=== PATIENT | female | born 2005 | race Caucasian/White ===

== ENCOUNTER 2024-11-02 20:21 | Emergency (ER) | payer BC, SELFPAY ==
--- OUTSIDE RECORDS SUMMARY | 2024-11-02 20:23 | XMS_ITS | Clinical Summary ---
Author Organization [facility] Address [address] [address] Phone Care Team Providers Care Computer Repair Instructor Name Role Phone Narayan Lee MD Primary Care Provider Allergies Active Allergy Reactions Criticality Noted Date Comments Diagnostic X-Ray Materials Hives,Dyspnea Medium 2017 Shortness of breath Medications Melatonin-Pyrid oxine (MELATIN) 3-1 MG Tablet Take by mouth. Active Levothyroxine Sodium 25 MCG Capsule Take by mouth. Active buPROPion XL (Wellbutrin XL) 150 MG 24 hour extended release tablet 10/30/2020 Acti ve Focalin XR 20 MG 24 hour capsule 07/27/2021 Active dexmethylphenid ate (Focalin) 5 MG tablet Take 5 mg by mouth one time a day. Active etonogestrel (Nexplanon) 68 MG Implant Inject under the skin Continuous. Active FLUoxetine (PROzac) 20 MG capsule Take 1 Capsule by mouth one time a day. 30 Capsule 2 05/21/2023 10:52 AM CDT 05/21/2023 Active propranolol (Inderal) 10 MG tablet Take 1 Tablet by mouth two times a day as needed for anxiety. 60 Tablet 2 05/21/2023 10:52 AM CDT 05/21/2023 Active Active Problems Problem Noted Date Diagnosed Date Acquired genu valgum, unspecified laterality Patellar subluxation, right, initial encounter 0 04/28/2018 Myopia with astigmatism, bilateral 07/01/2015 Immunizations Name Administration Dates Next Due DTaP <7 years 02/09/2010, 9,04/28/2006,05/06 Hepatitis A, Ped/Adolescent 2 dose 05/12/2015, Hepatitis B, Pediatric/adolescent 01/20/2009,,05/06/2005 Hib (Nos) 01/20/2009,04/28/2006,05/06/2005 IPV 02/09/2010, 9,04/28/2006,05/06 Influenza Trivalent With Preservative 07/21/2017 MMR 03/06/2009,04/28/2006 Pneumococcal Conjugate, (Prevnar)7-valent 04/28/2006,05/06/2005 Tdap (7 years and older) 03/09/2017 Varicella (Varivax) 02/09/2010,01/20/2009 meningococcal MCV4P (Menactra) 03/09/2017 Surgical History Surgery Date Site/Laterality Comments OTHER SURGICAL HISTORY 09/14/2018 Knee/Right Procedure: right knee arthroscopy with medial patella femoral ligament reconstruction using hamstring allograft; Surgeon: Jaime Delarosa MD; Location: [facility] MAIN ORS Medical devices from this surgery are in the Medical Devices section. Medical History Medical History Date Comments Asthma, mild persistent 03/09/2017 Knee pain, bilateral Intermitten t Depression, major, recurrent, moderate (HCC) Subclinical hypothyroidism 03/08/2018 Decreased appetite 11/21/2017 Wrist fracture, right MRSA infection Infancy Allergic rhinitis 01/27/2016 Chronic cough 01/27/2016 Scoliosis of lumbosacral spine 05/03/2017 W / hip asymmetry Scoliosis of thoracolumbar spine 11/21/2017 Acute pain of right knee 04/14/2018 Depression Family History Medical History Relation Comments Macular Degeneration Maternal Grandfather Relation Status Comments Maternal Grandfather Social History Tobacco Use Types Packs/Day Years Used Date Smoking Tobacco: Every Day Cigarettes Smokeless Tobacco: Never Tobacco Cessation:Ready to Q uit: Not Asked; Counseling Given: Not Answered Alcohol Use Standard Drinks/Week Comments Never 0 (1 standard drink = 0.6 oz pur e alcohol) Comments No Sex and Gender Information Value Date Recorded Sex Assigned at Female 09/14/2018 7:47 AM TRANSPORT MANAGER Legal Sex Female 2:55 PM TRANSPORT MANAGER Gender Identity Female 09/14/2018 7:47 AM TRANSPORT MANAGER Sexual Orientation Not on file Obstetrics History Growth Chart Information Age Height Weight Crwksr-jfw-afwd th Percentile BMI Percentile Head Circum Head Circum Percentile Date 12 years 155.5 cm (5' 1.22) 64.7 kg (142 lb 10.2 oz) 94.57%* 2017 * [facility] (Girls, 2-20 Years) Last Filed Vital Signs Vital Sign Reading Time Taken Comments Blood Pressure 97/39 09/14/2018 5:00 PM TRANSPORT MANAGER asl eep Pulse 90 09/14/2018 5:00 PM TRANSPORT MANAGER Temperature 37.2 C (98.9 F) 09/14/2018 5:00 PM TRANSPORT MANAGER Respiratory Rate 14 09/14/2018 5:46 PM TRANSPORT MANAGER Oxygen Saturation 97% 09/14/2018 3:00 PM TRANSPORT MANAGER Inhaled Oxygen Concentration - - Weight 64.7 kg (142 lb 10.2 oz) 09/14/2018 7:28 AM TRANSPORT MANAGER Height 155.5 cm (5' 1.22) 09/14/2018 7:28 AM CS T Body Mass Index 26.76 09/14/2018 7:28 AM TRANSPORT MANAGER Body Mass Index Percentile 94.57% 09/14/2018 7:2 8 AM TRANSPORT MANAGER Growth Chart: [facility] (Girls, 2- 20 Years) Plan of Treatment Health Maintenance Due Date Last Done Comments CHILD AND TEEN CHECKUP AGE 3 -20 YRS 2007 HPV Vaccine (Standing Order) (1 - 3-dose series) 2019 Chlamydia Screening 2020 Meningococcal B Vaccine (Sta nding Order) (1 of 2 - Standard) 2020 Pneumococcal/PCV20 Vaccine: Pediatrics (2-5 yrs) and At-Risk Patients (6-64 yrs) (Standing Order) (1 of 2 - PCV) 2023 04/28/2006, 05/06/2005 COVID-19 Vaccine (2023-2 5 season) 2024 Influenza Vaccine Seasonal (Standing Order) (#1) 2024 07/21/2017 DTaP,Tdap,and Td Vaccines (Standing Order) (6 - Td or Tdap) 03/09/2027 03/09/2017, 02/10/20, 01/20/2009, Additional history exists TETANUS (Standing Order) 03/09/2027 017, 02/09/2010, 01/20/2009, Additional history exists Hepatitis B Vaccine (Standin g Order) Completed 01/20/2009, 04/28/2006, 05/06/2005 PERTUSSIS (Standing Order) Completed 03/09, 02/09/2010, 01/20/2009, Additional history exists Medical Devices Implanted Type Area Renal Medicine Specialist Device Identifier Shelf Expiration Date Model / Serial / Lot System Implant Mpfl Bio Composite Ar-1360c-Cp - [id number] Implanted:Qty: 1 on 09/14/2018 by Jaime Delarosa MD at [facility] Right: Knee ARTHREX 01/08/2020 AR-1360C-C P / NO / [id number] Graft Allograft Tendon Gracillis 27.2cm X 4.0mm [id number] - [id number] Implanted:Qty: 1 on 09/14/2018 by Jaime Delarosa MD at [facility] Right: Knee MUSCULOSKELETAL TRANSPLANT FOU 03/08/2023 [id number] / [id number] / NO Insurance [place] [employer] [facility] [place] [id number] [place] [id number] [facility] Advance Directives For more information, please contact: [phone] * Full Code (Latest Code Status on File) Date Activated Date Inactivated Comments 09/14/2018 1:55 PM 09/14/2018 10:36 PM Care Teams Computer Repair Instructor Relationship Specialty Start Date End Date Narayan Lee MD [place] [id number] [facility] [place] [address] PCP - General Family Medicine 09/28/10
[2024-11-02 20:28] VITALS: BP 129/90; PULSE 109; RESP 18; TEMP 37.1; O2SAT 98; BMI 24.7
[2024-11-02 20:35] VITALS: O2SAT 98
--- NOTE | 2024-11-02 20:35 | ED_ITS ---
HPI - General Adult General Chief complaint: Abdominal Pain Stated complaint: Severe abdominal pain Time Seen by Provider: 11/02/24 20:27 History of Present Illness HPI narrative: 0530 started lower abd pain bilat. N/V/D today. denies known fevers, no meds for pain. restarted sertraline 100 last night as well as new med for sleep. no hx abd sx, does have hx ovarian cysts. has nexplanon BC. A 18-year-old young woman presenting to the emergency department with concern of severe mid abdominal pain. Began fairly suddenly early this morning. She also has been having intermittently loose stools for months. Has not had any fever. Not tried any treatment. She says it is definitely escalated since she has been in the emergency department. She is trembling and breathing rapidly noting that her hands and fingers are getting tingly. Does have a history of ovarian cyst. She does have Nexplanon does not know when her last period was; that it has been a very long time. Did start sertraline 100 mg last night and also clonidine for sleep. Vomited a lot today. She does admit to marijuana use and has had associated abdominal pain but she says this is not it. She does use generally marijuana regularly, daily but has not over the last 2 days she says. She says her doctors not take her seriously. Says she has been told also that she is constipated. Sounds inconsistent with her loose stools. Later questioning acknowledges this has had urgency for months but urinalyses are always unremarkable. Has had about 3 urinalysis done. Denies possibility of he STI and was screened. Is here with her partner in describes that they have been very open about all these things. There is no concern of STI Related Data Home Medications ?Medication ?Instructions ?Recorded ?Confirmed clonidine HCl 0.1 mg tablet 0.1 mg PO QPM 11/02/24 11/02/24 sertraline 100 mg tablet 100 mg PO DAILY 11/02/24 11/02/24 Allergies Allergy/AdvReac Type Severity Reaction Status Date / Time Iodinated Contrast Media Allergy Severe Anaphylaxis Verified 11/02/24 20:33 Review of Systems Status of ROS: Reports: 6 or more systems reviewed and unremarkable except as noted in History and below [facility] Medical History Ovarian cyst ?N83.209 - Unspecified ovarian cyst, unspecified side (ICD-10) Surgical History No significant past surgical history Social History Smoking Status: Never smoker Second hand tobacco smoke exposure: No How often do you have a drink containing alcohol: never AUDIT-C Alcohol total score: 0 Non-prescribed substance use: denies use Exam Narrative: Exam Narrative: Tremulous. Breathing rapidly. Is able to focus and relax a little. Moving all extremities without difficulty. She is well-perfused. No peripheral edema noted. Heart in elevated rate and regular rhythm. Lungs appear to be clear. Abdomen is soft and not tender. Const: Vital Signs, click to edit/add: Vital Signs - 24 hr 11/02/24 20:28 11/02/24 20:35 Temperature 98.8 F Pulse Rate [Pulse Oximeter] 109 H Respiratory Rate 18 Blood Pressure [Ri ght Upper Arm] 129/90 H Pulse Oximetry 98 98 Oxygen Delivery Me thod Room Air Documenting provider has reviewed patient's vital signs: yes Course Vital Signs Vital signs: Initial Vital Signs Temperature 98.8 F 11/02/24 20:28 Temperature Source Temporal Artery Scan 11/02/24 20:28 Pulse Rate 109 H 11/02/24 20:28 Respiratory Rate 18 11/02/24 20:28 Blood Pressure 129/90 H 11/02/24 20:28 Blood Pressure Mean 103 11/02/24 20:28 Blood Pressure Position Sitting 11/02/24 20:28 Pulse Oximetry 98 11/02/24 20:28 Oxygen Delivery Method Room Air 11/02/24 20:28 Vital Signs Temperature 98.8 F 11/02/24 20:28 Pulse Rate 109 H 11/02/24 20:28 Respiratory Rate 18 11/02/24 20:28 Blood Pressure 129/90 H 11/02/24 20:28 Pulse Oximetry 98 11/02/24 20:28 Oxygen Delivery Method Room Air 11/02/24 20:28 Temperature 98.8 F 11/02/24 23:07 Pulse Rate 90 11/02/24 23:07 Respiratory Rate 18 11/02/24 23:07 Blood Pressure 121/74 11/02/24 23:07 Pulse Oximetry 98 11/02/24 23:06 Oxygen Delivery Method Room Air 11/02/24 23:06 Medications Administered Medications: Discontinued Medications Generic Name Dose Route Start Last Admin Trade Name Michelle PRN Reason Stop Dose Admin Sodium Chloride 1,000 mls @ 1,000 mls/hr 11/02/24 20:46 11/02/24 21:35 0.9 % Sodium Chloride 1000 Ml IV 11/02/24 21:45 Infused .Q1H ONE Infusion Ketamine HCl 20 mg/ Sodium 100.2 mls @ 200.4 mls/hr 11/02/24 22:02 11/02/24 22:36 Chloride IVPB 11/02/24 22:03 Infused ONCE ONE Infusion Ketorolac Tromethamine 15 mg 11/02/24 20:44 11/02/24 20:50 Ketorolac 15 Mg/Ml Inj IVP 11/02/24 20:45 15 mg ONCE ONE Administration Lorazepam 0.5 mg 11/02/24 20:44 11/02/24 20:50 Lorazepam 2 Mg/Ml Inj IVP 11/02/24 20:45 0.5 mg ONCE ONE Administration Ondansetron HCl 4 mg 11/02/24 20:53 11/02/24 20:54 Ondansetron 2 Mg/Ml Inj IVP 11/02/24 20:54 4 mg ONCE ONE Administration Promethazine HCl 12.5 mg 11/02/24 22:58 11/02/24 23:03 Promethazine 25 Mg/Ml Inj IVP 11/02/24 22:59 12.5 mg ONCE ONE Administration Medical Decision Making [facility] Narrative Medical decision making narrative: Differential would include functional abdominal pain possibly associated with marijuana. May be viral GI bug. Think less likely ovarian cyst as discomfort is not reproducible. Symptoms could be exacerbated currently by anxiety I think. She would accept this I believe. Amplifying abdominal pain could be sudden restart of SSRI or least amplifying nausea. May have food intolerance or ?allergy? with some related pain. Initiating IV fluids; normal saline. Zofran, ketorolac, lorazepam. Labs are reassuring. Urinalysis pending Reports improvement with anxiety but still with pain and nausea. Discussed potential benefit of ketamine also is there is emotional component to this. And decided to proceed with ketamine dosing. Urinalysis returns looking markedly more positive than reported in the past. Perhaps would be worth treating at this point. Has not received antibiotics for this. Ketamine helps with pain and nausea but she is further distress not feeling really in controller being aware of where she is. Offered reassurance. Does improved. Still with nausea then given promethazine. Possibly with aseptic cystitis? See patient discharge plan for further discussion Starting SSRIs like sertraline can certainly cause/contribute to nausea. If it has been a little while since you have been on it, starting at 100 mg might be uncomfortable. Might need to begin at a lower dose. Marijuana-type product might also be contributing to abdominal pain or or nausea or even anxiety. Will be prescribing cephalexin as an antibiotic and Zofran for nausea from [facility]. Focus on hydration. Popsicles and Jell-O count as hydration I suppose :) A urine culture will be pending here. If it looks like choice of treatment needs to be changed, we will give you a call. Medical Records Medical records reviewed: Yes I reviewed the patient's medical records Lab Data Lab results reviewed: Yes I reviewed the patient's lab results Labs: Lab Results 11/02/24 11/02/24 Range/Units 20:28 20:40 WBC 7.12 (4.50-11.00) K/uL RBC 5.17 (4.00-5.20) m/uL Hgb 14.8 (12.0-16.0) gm/dL Hct 42.3 (33.0-51.0) % MCV 82 (80-100) fL MCH 29 (26-34) pg MCHC 35 (32-36) gm/dL RDW Coeff of Nabila 11.7 (11.5-15.5) % Plt Count 330 (140-440) K/uL Neut % (Auto) 71.2 (42.0-72.0) % Lymph % (Auto) 21.3 (20-44) % [place] % (Auto) 7.2 (0.0-11.0) % Eos % (Auto) 0.0 (0.0-7.0) % Baso % (Auto) 0.3 (0.0-3.0) % Neut # (Auto) 5.07 (1.7-7.0) K/uL Lymph # (Auto) 1.52 (0.90-2.90) K/uL [place] # (Auto) 0.50 (0.00-0.90) K/UL Eos # (Auto) 0.00 (0.00-0.50) K/uL Baso # (Auto) 0.02 (0.00-0.30) K/uL Abs Immat Gran (auto) 0.00 (0.00-0.30) K/uL Imm/Tot Granulo (auto) 0.0 % Sodium 138 (135-149) mmol/L Potassium 3.8 (3.6-5.1) mmol/L Chloride 106 (96-114) mmol/L Carbon Dioxide 12 L (20-32) mmol/L Anion Gap 20 H (7-15) mEq/L BUN 10 (5-24) mg/dL Creatinine 0.8 (0.6-1.2) mg/dL Estimated Creat Clear 89.46 Estimated GFR 109 ml/min Glucose 106 (60-115) mg/dL Calcium 10.2 (8.7-10.8) mg/dL Total Bilirubin 0.9 (0.1-1.5) mg/dL Direct Bilirubin 0.3 (0.0-0.5) mg/dL AST 24 (12-35) U/L ALT 23 (4-35) U/L Alkaline Phosphatase 90 (40-150) U/L C-Reactive Protein < 0.5 L (0.5-1.0) mg/dL Total Protein 7.9 (6.0-8.3) g/dL Albumin 4.9 (3.3-5.0) g/dL Urine Color Yellow (Yellow) Urine Appearance Cloudy A (Clear) Urine pH 6.0 (5.0-8.5) Ur Specific [place] >= 1.030 (1.000-1.030) Urine Protein 2+ A (Negative) Urine Glucose (UA) Negative (Negative) Urine Ketones 3+ A (Negative) Urine Blood 1+ A (Negative) Urine Nitrite Negative (Negative) Urine Bilirubin 2+ A (Negative) Urine Urobilinogen 0.2 (0.2-1.0) Ur Leukocyte Esterase 1+ A (Negative) Urine RBC 10-25 A (0-2) Urine WBC 10-25 A (0-5) Ur Squamous Epith Cells Few (None-Few) Urine Bacteria Many A (None) Urine HCG, Qual Negative (Negative) Discharge Plan Discharge Clinical Impression: Cystitis, Abdominal pain, Anxiety Patient Disposition: Home w/ Parent or Adult Condition: Improved Additional Instructions: Starting SSRIs like sertraline can certainly cause/contribute to nausea. If it has been a little while since you have been on it, starting at 100 mg might be uncomfortable. Might need to begin at a lower dose. Marijuana-type product might also be contributing to abdominal pain or or nausea or even anxiety. Will be prescribing cephalexin as an antibiotic and Zofran for nausea from [facility]. Focus on hydration. Popsicles and Jell-O count as hydration I suppose :) A urine culture will be pending here. If it looks like choice of treatment needs to be changed, we will give you a call. Prescriptions: No Action clonidine HCl 0.1 mg tablet 0.1 mg PO QPM sertraline 100 mg tablet 100 mg PO DAILY Follow Up/Referrals: Provider,Not a Local [Primary Care Provider] - Stand Alone Forms: [facility] Info Instructions
[2024-11-02 20:46] LABS: Ur HCG Qualitative* Negative (Negative)
[2024-11-02] MEDS: KETOROLAC 15 MG/ML inj IVP (20:50)
[2024-11-02] MEDS: LORazepam 2 MG/ML inj 0.5 MG IVP (20:50)
[2024-11-02] MEDS: 0.9 % SODIUM CHLORIDE 1000 ml 1,000 ML IV (20:53)
[2024-11-02] MEDS: ONDANSETRON 2 MG/ML inj 4 MG IVP (20:54)
[2024-11-02 20:58] LABS: Basophils Absolute Auto 0.02 K/uL (0.00-0.30); Basophils Percent Auto 0.3 % (0.0-3.0); Hematocrit 42.3 % (33.0-51.0); Hemoglobin* 14.8 gm/dL (12.0-16.0); Lymphocytes Absolute Auto 1.52 K/uL (0.90-2.90); Lymphocytes Percent Auto 21.3 % (20-44); Mean Corpuscular HGB Conc 35 gm/dL (32-36); Mean Corpuscular Hemoglobin 29 pg (26-34); Mean Corpuscular Volume 82 fL (80-100); Monocytes Percent Auto 7.2 % (0.0-11.0); Neutrophils Absolute Auto 5.07 K/uL (1.7-7.0); Neutrophils Percent Auto 71.2 % (42.0-72.0); Platelet Count* 330 K/uL (140-440); RDW Coefficient of Variation % 11.7 % (11.5-15.5); Red Blood Count 5.17 m/uL (4.00-5.20); White Blood Count* 7.12 K/uL (4.50-11.00)
[2024-11-02 21:00] LABS: Appearance Urine Cloudy (Clear); Bacteria Urine Many; Bilirubin Urine 2+ (Negative); Blood Urine 1+ (Negative); Color Urine Yellow (Yellow); Glucose Urine Negative (Negative); Ketones Urine 3+ (Negative); Leukocyte Esterase Urine 1+ (Negative); Nitrite Urine Negative (Negative); Protein Urine 2+ (Negative); Specific Gravity Urine >= 1.030 (1.000-1.030); Squamous Epithelial Cell Urine Few (None-Few); Urobilinogen Urine 0.2 (0.2-1.0)
[2024-11-02 21:01] LABS: Slide Review Reflex No
[2024-11-02 21:11] LABS: Chloride* 106 mmol/L (96-114)
[2024-11-02 21:12] LABS: Albumin* 4.9 g/dL (3.3-5.0); Potassium* 3.8 mmol/L (3.6-5.1); Sodium* 138 mmol/L (135-149)
[2024-11-02 21:14] LABS: Creatinine* 0.8 mg/dL (0.6-1.2); Est. Creatinine Clearance* 89.46; Estimated Glomerular Filt Rate 109 ml/min
[2024-11-02 21:15] LABS: Alkaline Phosphatase* 90 U/L (40-150); Anion Gap 20 mEq/L (7-15); Aspartate Amino Transferase* 24 U/L (12-35); Bilirubin Direct* 0.3 mg/dL (0.0-0.5); Bilirubin Total* 0.9 mg/dL (0.1-1.5); Blood Urea Nitrogen* 10 mg/dL (5-24); Carbon Dioxide* 12 mmol/L (20-32); Glucose* 106 mg/dL (60-115); Total Protein* 7.9 g/dL (6.0-8.3)
[2024-11-02 21:16] LABS: Calcium* 10.2 mg/dL (8.7-10.8)
[2024-11-02 21:18] LABS: C Reactive Protein* < 0.5 mg/dL (0.5-1.0)
[2024-11-02 21:22] LABS: Alanine Aminotransferase* 23 U/L (4-35)
--- OUTSIDE RECORDS SUMMARY | 2024-11-02 21:53 | XMS_ITS | Clinical Summary ---
Author Organization [facility] Address [address] [address] Phone Care Team Providers Care Completion Supervisor Name Role Phone Narayan Lee MD Primary Care Provider [phone] Allergies Active Allergy Reactions Criticality Noted Date [...] allograft; Surgeon: Jaime Delarosa MD; Location: [facility] MA[facility] ORS Medical devices from this surgery [...] Sex Assigned at Female 09/14/2018 7:47 AM GEOLOGIST Legal Sex Female 2:55 PM GEOLOGIST Gender Identity Female 09/14/2018 7:47 AM GEOLOGIST Sexual Orientation Not on file Obstetrics History Growth Chart Information Age Height Weight Plkdax-znm-bnzz th Percentile BMI Percentile Head Circum Head Circum Percentile Date 12 years 155.5 cm (5' 1.22) 64.7 kg (142 lb 10.2 oz) 94.57%* 2017 * [facility] (Girls, 2-20 Years) Last Filed Vital Signs Vital Sign Reading Time Taken Comments Blood Pressure 97/39 09/14/2018 5:00 PM GEOLOGIST asl eep Pulse 90 09/14/2018 5:00 PM GEOLOGIST Temperature 37.2 C (98.9 F) 09/14/2018 5:00 PM GEOLOGIST Respiratory Rate 14 09/14/2018 5:46 PM GEOLOGIST Oxygen Saturation 97% 09/14/2018 3:00 PM GEOLOGIST Inhaled Oxygen Concentration - - Weight 64.7 kg (142 lb 10.2 oz) 09/14/2018 7:28 AM GEOLOGIST Height 155.5 cm (5' 1.22) 09/14/2018 7:28 AM CS T Body Mass Index 26.76 09/14/2018 7:28 AM GEOLOGIST Body Mass Index Percentile 94.57% 09/14/2018 7:2 8 AM GEOLOGIST Growth Chart: [facility] (Girls, 2- 20 Years) Plan of Treatment [...] history exists Medical Devices Implanted Type Area Branch Library Clerk Device Identifier Shelf Expiration Date Model / Serial / Lot System Implant Mpfl Bio Composite Ar-1360c-Cp - [id number] Implanted:Qty: 1 on 09/14/2018 by Jaime Delarosa MD at [facility] Right: Knee [employer] 01/08/2020 AR-1360C-C P / NO / [id number] Graft Allograft Tendon Gracillis 27.2cm X 4.0mm [id number] - [id number] Implanted:Qty: 1 on 09/14/2018 by Jaime Delarosa MD at [facility] Right: Knee MUSCULOSKELETAL TRANSPLANT FOU 03/08/2023 [id number] / [id number] / NO Insurance [place] [employer] [place] [id number] [place] [id number] [facility] Advance Directives For more information, please contact: [phone] * Full Code (Latest Code Status on File) Date Activated Date Inactivated Comments 09/14/2018 1:55 PM 09/14/2018 10:36 PM Care Teams Completion Supervisor Relationship Specialty Start Date End Date Narayan Lee MD [place] [id number] [facility] [place] [address] PCP - General Family Medicine 09/28/10
[2024-11-02 21:54] VITALS: TEMP 37.1
[2024-11-02] MEDS: KETAMINE 50 MG/0.5 ML 20 MG in 0.9 % SODIUM CHLORIDE 100 ml 100 ML 200.4 MG IVPB (22:05)
[2024-11-02 22:33] VITALS: BP 130/82; PULSE 99; RESP 18; TEMP 37.1; O2SAT 98
[2024-11-02] MEDS: PROMETHAZINE 25 MG/ML INJ 12.5 MG IVP (23:03)
[2024-11-02 23:06] VITALS: BP 121/74; PULSE 90; RESP 18; TEMP 37.1; O2SAT 98
[2024-11-02 23:07] VITALS: BP 121/74; PULSE 90; RESP 18; TEMP 37.1
== END 2024-11-02 23:28 | disposition home or self-care (01) ==
PROVIDERS: Emergency Provider Family Medicine
DX: N30.90 Cystitis, unspecified without hematuria (principal); R10.9 Unspecified abdominal pain; F41.9 Anxiety disorder, unspecified
CPT/HCPCS: 36415; 80048; 80076; 81001; 81025; 85025; 86140; 87086; 94761; 96365; 96375; 99284; J1885; J2060; J2405; J2550; J3490; J7030

== ENCOUNTER 2025-01-15 13:40 | Emergency (ER) | payer BC, SELFPAY ==
[2025-01-15 14:01] VITALS: BP 120/75; PULSE 134; RESP 22; TEMP 37.4; O2SAT 98; BMI 21.0
--- NOTE | 2025-01-15 14:30 | ED_ITS ---
HPI - Abdominal Pain General Chief Complaint: Abdominal Pain Stated Complaint: abdomal pain Time Seen by Provider: 01/15/25 13:51 History of Present Illness HPI narrative: This 19-year-old female comes in reporting upper abdominal pain for the past 3 or 4 days. She states that it is constant but also fluctuates some. She states the pain is always worse when taking food. She does report some nausea and occasional vomiting. She has been having pain like this on and off over the pas t few months and states that she has lost about 25 lb because of the symptoms worsening when taking food. He does not report any fevers. She has not had any diarrhea. She states that she has taken some Pepto-Bismol which seems to give some relief at times. Related Data Home Medications ?Medication ?Instructions ?Recorded ?Confirmed buspirone 5 mg tablet 5 mg PO BID 01/14/25 01/14/25 hydroxyzine HCl 25 mg tablet mg PO 01/14/25 01/14/25 Previous Rx's ?Medication ?Instructions ?Recorded ondansetron 4 mg disintegrating 4 mg PO Q8H PRN nausea and 01/14/25 tablet vomiting #10 tabs pantoprazole 20 mg tablet,delayed 20 mg PO DAILY #30 tabs 01/15/25 release (Protonix) Allergies Allergy/AdvReac Type Severity Reaction Status Date / Time Iodinated Contrast Media Allergy Severe Anaphylaxis Verified 01/14/25 15:40 Review of Systems Status of ROS Reports: 10 or more systems reviewed and unremarkable except as noted in History and below Narrative Constitutional: No fevers, no weight gain or loss. Eyes: No discharge. No vision changes. HENT: No congestion, no sore throat, no ear pain. Cardiovascular: No chest pain, no palpitations. Respiratory: No shortness of breath, no wheezes, no cough. Gastrointestinal: No diarrhea. Abdominal pain is described above. Genitourinary: No dysuria, no hematuria. Musculoskeletal: Normal range of motion. Skin: No rashes, no pruritis. Neurological: No dizziness, weakness, sensory change, speech change. Endo/Heme/Allergies: No bruising or bleeding. No polydipsia. Pysch: no suicidality, no anxiety, no insomnia. All other systems reviewed and are negative. [facility] Medical History Ovarian cyst ?N83.209 - Unspecified ovarian cyst, unspecified side (ICD-10) Surgical History No significant past surgical history Social History Smoking Status: Never smoker Do you use any of these nicotine containing products: Vaping Products Second hand tobacco smoke exposure: No How often do you have a drink containing alcohol: never AUDIT-C Alcohol total score: 0 Non-prescribed substance use: marijuana (any form) Exam Narrative: Exam Narrative: Constitutional: Well-developed, well-nourished, no acute distress. HEENT: Normocephalic, atraumatic. Neck: Normal range of motion. Nontender. Supple. Heart: Regular. No murmurs. Normal rate. Intact distal pulses. Lungs: Clear to auscultation. No chest discomfort. No wheezes, rhonchi, or rales. Abdomen: Normal bowel sounds. Tenderness across the upper abdomen. No rebound tenderness. Genitalia: Deferred. Back: No midline tenderness. Normal range of motion. Extremities: Normal range of motion. No injury. Skin: Intact. No rash. Warm. No erythema or pallor. Neurologic: No altered sensation. No weakness. Alert and oriented. Psychiatric: No suicidality. No anxiety or depression. No insomnia. Nursing notes and vitals signs are reviewed. Const: Vital Signs, click to edit/add: Vital Signs - 24 hr 01/15/25 14:01 Temperature 99.3 F Pulse Rate [Pulse Oximeter] 134 H Respiratory Rate 22 Blood Pressure [Le ft Upper Arm] 120/75 Pulse Oximetry 98 Oxygen Delivery Me thod Room Air Course Vital Signs Vital signs: Initial Vital Signs Temperature 99.3 F 01/15/25 14:01 Temperature Source Temporal Artery Scan 01/15/25 14:01 Pulse Rate 134 H 01/15/25 14:01 Respiratory Rate 22 01/15/25 14:01 Blood Pressure 120/75 01/15/25 14:01 Blood Pressure Mean 90 01/15/25 14:01 Blood Pressure Position Sitting 01/15/25 14:01 Pulse Oximetry 98 01/15/25 14:01 Oxygen Delivery Method Room Air 01/15/25 14:01 Vital Signs Temperature 99.3 F 01/15/25 14:01 Pulse Rate 134 H 01/15/25 14:01 Respiratory Rate 22 01/15/25 14:01 Blood Pressure 120/75 01/15/25 14:01 Pulse Oximetry 98 01/15/25 14:01 Oxygen Delivery Method Room Air 01/15/25 14:01 Temperature 99.3 F 01/15/25 14:01 Pulse Rate 134 H 01/15/25 14:01 Respiratory Rate 22 01/15/25 14:01 Blood Pressure 120/75 01/15/25 14:01 Pulse Oximetry 98 01/15/25 14:01 Oxygen Delivery Method Room Air 01/15/25 14:01 MDM - Abdominal Pain MDM Narrative Medical decision making narrative: This 19-year-old female comes in reporting upper epigastric pain it seems worse when taking food. She reports a weight loss of about 25 lb over the past few months due to these symptoms. She did have her blood checked a few days ago in an urgent care visit and I checked those results which were reassuring. I did use bedside ultrasound to look at her gallbladder which was contracted but did not show any sign of abnormality. The CT scan of her abdomen is also obtained without contrast, as the patient states that she had a reaction to contrast in the past, and this returned with no acute findings also. This was reassuring to her but does not explain her symptoms. I did draw a lab to check her thyroid and the results for this are pending. Patient is okay to be discharged home and will be notified if something is abnormal in that lab result. The patient states that she gets some relief temporarily when taking Pepto-Bismol. I did provide a prescription for Protonix and advised her to follow-up with the gastroenterology clinic or consider an upper GI scope if not improving. Imaging Data CT scan - abdomen: Radiologist's impression: Unremarkable noncontrast abdomen and pelvis CT. Discharge Plan Discharge Clinical Impression: Abdominal pain Patient Disposition: Home, Self-Care Condition: Stable Additional Instructions: Take medication as prescribed. Increase diet as tolerated. Follow-up with gastroenterology clinic and or consider upper endoscopy for further evaluation. Return if worsening. Prescriptions: New pantoprazole [Protonix] 20 mg tablet,delayed release (DR/EC) 20 mg PO DAILY Qty: 30 2RF No Action buspirone 5 mg tablet 5 mg PO BID hydroxyzine HCl 25 mg tablet PO ondansetron 4 mg tablet,disintegrating 4 mg PO Q8H PRN (Reason: nausea and vomiting) Qty: 10 0RF Follow Up/Referrals: Provider,Not a Local [Primary Care Provider] - Stand Alone Forms: MyHealth Info Instructions Procedures Ultrasound Biliary exam #1: Anatomical areas examined: gallbladder, long and short axis and common bile duct Indications: RUQ/epigastric pain Exam type: limited abdominal ultrasound; RUQ Impression: normal exam
--- NOTE | 2025-01-15 14:49 | CRLHL7_ITS ---
For Patients: As a result of the Century Cures Act, medical imaging exams and procedure reports are released immediately into your electronic medical record. You may view this report before your referring provider. If you have questions, please contact your health care provider. INDICATION: Upper abdominal pain and dyspepsia TECHNIQUE: Axial images were obtained from the diaphragm to the pubic symphysis. Reformats were obtained in the coronal and sagittal plane. IV Contrast: None Oral Contrast: None COMPARISON: None. FINDINGS: Lower chest: Unremarkable. Liver: Liver is normal in contour with likely focal fat adjacent to the falciform ligament. Gallbladder and bile ducts: Contracted gallbladder grossly unremarkable. Spleen: Unremarkable. Normal in size without mass. Pancreas: Unremarkable. No mass or inflammation. Adrenal glands: Unremarkable. No nodules. Kidneys: Unremarkable. No masses, stones, or hydronephrosis. Vasculature: Unremarkable. GI tract: The stomach is unremarkable. No dilated loops of large or small intestine. Appendix unremarkable. Pelvis: Unremarkable. Bones: Unremarkable for age. IMPRESSION: Unremarkable noncontrast abdomen and pelvis CT. Please note that all CT scans at this facility use dose modulation, iterative reconstruction, and/or weight-based dosing when appropriate to reduce radiation dose to as low as reasonably achievable. Dictated by Pedro Eagle MD @ 01/15/2025 3:44:24 PM (Electronically Signed)
[2025-01-15 16:01] VITALS: BP 111/67; PULSE 67; RESP 18; TEMP 37.1; O2SAT 96
--- OUTSIDE RECORDS SUMMARY | 2025-01-15 16:22 | XMS_ITS | Clinical Summary ---
Author Organization [facility] Address [address] [address] Phone Care Team Providers Care Quality Control Engineering Technician Name Role Phone Narayan Lee MD Primary Care Provider [phone] Allergies Active Allergy Reactions Criticality Noted Date [...] hamstring allograft; Surgeon: Jaime Delarosa MD; Location: [facility] MA[facility]S Medical devices from [...] Sex Assigned at Female 09/14/2018 7:47 AM MOTION DESIGNER Legal Sex Female 2:55 PM MOTION DESIGNER Gender Identity Female 09/14/2018 7:47 AM MOTION DESIGNER Sexual Orientation Not on file Obstetrics History Last Filed Vital Signs Vital Sign Reading Time Taken Comments Blood Pressure 97/39 09/14/2018 5:00 PM MOTION DESIGNER asl eep Pulse 90 09/14/2018 5:00 PM MOTION DESIGNER Temperature 37.2 C (98.9 F) 09/14/2018 5:00 PM MOTION DESIGNER Respiratory Rate 14 09/14/2018 5:46 PM MOTION DESIGNER Oxygen Saturation 97% 09/14/2018 3:00 PM MOTION DESIGNER Inhaled Oxygen Concentration - - Weight 64.7 kg (142 lb 10.2 oz) 09/14/2018 7:28 AM MOTION DESIGNER Height 155.5 cm (5' 1.22) 09/14/2018 7:28 AM CS T Body Mass Index 26.76 09/14/2018 7:28 AM MOTION DESIGNER Plan of Treatment Health Maintenance Due Date Last Done Comments HPV Vaccine (Standing Order) (1 - 3-dose series) 2019 Chlamydia Screening 2020 Meningococcal B Vaccine (Sta nding Order) (1 of 2 - Standard) 2020 ADULT COMPLETE PHYSICAL AGE 19-21 YRS 2023 Pneumococcal/PCV20 Vaccine: Pediatrics (2-5 yrs) and At-Risk Patients (6-49 yrs) (Standing Order) (1 of 2 - PCV) 2023 04/28/2006, 05/06/2005 COVID-19 Vaccine (2023-2 5 season) 2024 Influenza Vaccine Seasonal (Standing Order) (#1) 2024 07/21/2017 TETANUS (Standing Order) 03/09/2027 017, 02/09/2010, 01/20/2009, Additional history exists Hepatitis B Vaccine (Standin g Order) Completed 01/20/2009, 04/28/2006, 05/06/2005 PERTUSSIS (Standing Order) Completed 03/09, 02/09/2010, 01/20/2009, Additional history exists Medical Devices Implanted Type Area Revenue Investigator Device Identifier Shelf Expiration Date Model / Serial / Lot System Implant Mpfl Bio Composite Ar-1360c-Cp - [id number] Implanted:Qty: 1 on 09/14/2018 by Jaime Delarosa MD at [facility] Right: Knee ARTHREX 01/08/2020 AR-1360C-C P / NO / [id number] Graft Allograft Tendon Gracillis 27.2cm X 4.0mm [id number] - [id number] Implanted:Qty: 1 on 09/14/2018 by Jaime Delarosa MD at [facility] Right: Knee MUSCULOSKELETAL TRANSPLANT FOU 03/08/2023 [id number] / [id number] / [place] [address] [facility] [facility] [address] [place] [address] [place] [address] [place] [address] Advance Directives For more information, please contact: [phone] * Full Code (Latest Code Status on File) Date Activated Date Inactivated Comments 09/14/2018 1:55 PM 09/14/2018 10:36 PM Care Teams Quality Control Engineering Technician Relationship Specialty Start Date End Date Narayan Lee MD [address] [place] [address] PCP - General Family Medicine 09/28/10
== END 2025-01-15 16:32 | disposition home or self-care (01) ==
PROVIDERS: Emergency Provider Emergency Medicine Emergency Medical Services
DX: R10.9 Unspecified abdominal pain (principal)
CPT/HCPCS: 36415; 74176; 76705; 84443; 99284; 99285

== ENCOUNTER 2025-01-18 12:35 | Emergency (ER) | payer BC, SELFPAY ==
--- OUTSIDE RECORDS SUMMARY | 2025-01-18 12:37 | XMS_ITS | Clinical Summary ---
Author Organization [facility] Address [address] [address] Phone Care Team Providers Care Human Relations Manager Name Role Phone Narayan Lee MD Primary Care Provider [phone] Allergies Active Allergy Reactions Criticality Noted Date [...] hamstring allograft; Surgeon: Jaime Delarosa MD; Location: [facility] MA[facility]S Medical devices from [...] Sex Assigned at Female 09/14/2018 7:47 AM ELECTRIC LOCOMOTIVE CRANE OPERATOR Legal Sex Female 2:55 PM ELECTRIC LOCOMOTIVE CRANE OPERATOR Gender Identity Female 09/14/2018 7:47 AM ELECTRIC LOCOMOTIVE CRANE OPERATOR Sexual Orientation Not on file Obstetrics History Last Filed Vital Signs Vital Sign Reading Time Taken Comments Blood Pressure 97/39 09/14/2018 5:00 PM ELECTRIC LOCOMOTIVE CRANE OPERATOR asl eep Pulse 90 09/14/2018 5:00 PM ELECTRIC LOCOMOTIVE CRANE OPERATOR Temperature 37.2 C (98.9 F) 09/14/2018 5:00 PM ELECTRIC LOCOMOTIVE CRANE OPERATOR Respiratory Rate 14 09/14/2018 5:46 PM ELECTRIC LOCOMOTIVE CRANE OPERATOR Oxygen Saturation 97% 09/14/2018 3:00 PM ELECTRIC LOCOMOTIVE CRANE OPERATOR Inhaled Oxygen Concentration - - Weight 64.7 kg (142 lb 10.2 oz) 09/14/2018 7:28 AM ELECTRIC LOCOMOTIVE CRANE OPERATOR Height 155.5 cm (5' 1.22) 09/14/2018 7:28 AM CS T Body Mass Index 26.76 09/14/2018 7:28 AM ELECTRIC LOCOMOTIVE CRANE OPERATOR Plan of Treatment Health Maintenance Due Date [...] history exists Medical Devices Implanted Type Area Gas Meter Reader Device Identifier Shelf Expiration Date Model / Serial / Lot System Implant Mpfl Bio Composite Ar-1360c-Cp - [id number] Implanted:Qty: 1 on 09/14/2018 by Jaime Delarosa MD at [facility] Right: Knee ARTHREX 01/08/2020 AR-1360C-C P / NO / [id number] Graft Allograft Tendon Gracillis 27.2cm X 4.0mm [id number] - [id number] Implanted:Qty: 1 on 09/14/2018 by Jaime Delarosa MD at [facility] Right: Knee MUSCULOSKELETAL TRANSPLANT FOU 03/08/2023 [id number] / [id number] / NO [place] [address] [address] [facility] [address] [place] [address] [place] [address] [place] [address] Advance Directives For more information, please contact: [phone] * Full Code (Latest Code Status on File) Date Activated Date Inactivated Comments 09/14/2018 1:55 PM 09/14/2018 10:36 PM Care Teams Human Relations Manager Relationship Specialty Start Date End Date Narayan Lee MD [address] [place] [address] PCP - General Family Medicine 09/28/10
[2025-01-18 12:44] VITALS: BP 121/75; PULSE 121; RESP 26; TEMP 38.4; O2SAT 98; BMI 21.2
--- NOTE | 2025-01-18 13:03 | ED_ITS ---
HPI - General Adult General Time Seen by Provider: 13:03 Date Seen: 01/18/25 Chief complaint: Back Injury/Pain Stated complaint: back and chest pain for 8 days Time Seen by Provider: 01/18/25 12:37 Source: patient, RN notes reviewed and old records reviewed Mode of arrival: ambulatory Limitations: no limitations History of Present Illness HPI narrative: This 19-year-old female is coming in with complaint of a week and a half of a band of upper abdominal midback pain. She was in the ER on January 15, had a CT of her abdomen pelvis without any acute pathology. No labs are seen from that date. She has pain in the center of her mid thoracic back. She states she has had a 25 lb weight loss in the last month. She denies any changes in urination. She does endorse dry cough, post-tussive emesis, some ongoing nausea and dry heaves outside of cough. She has had normal bowel movements. She has tried Tylenol, ice, ibuprofen and nothing is helping. She has not taken anything. She has a fever here today, unclear how long she has been febrile. She denies any travel. She has not been working. She was in college, states she had some problems and is getting herself sorted out. Related Data Home Medications ?Medication ?Instructions ?Recorded ?Confirmed buspirone 5 mg tablet 5 mg PO BID 01/14/25 01/18/25 hydroxyzine HCl 25 mg tablet mg PO 01/14/25 01/14/25 etonogestrel 68 mg subdermal subdermal 01/18/25 implant (Nexplanon) Previous Rx's ?Medication ?Instructions ?Recorded ondansetron 4 mg disintegrating 4 mg PO Q8H PRN nausea and 01/14/25 tablet vomiting #10 tabs pantoprazole 20 mg tablet,delayed 20 mg PO DAILY #30 tabs 01/15/25 release (Protonix) azithromycin 250 mg tablet 250 mg PO DAILY 6 days #4 tabs 01/18/25 cefdinir 300 mg capsule 300 mg PO BID #14 caps 01/18/25 ibuprofen 600 mg tablet 600 mg PO Q6H PRN #30 tabs 01/18/25 ondansetron 4 mg disintegrating 4 mg PO Q6H PRN nausea and 01/18/25 tablet vomiting #10 tabs Allergies Allergy/AdvReac Type Severity Reaction Status Date / Time Iodinated Contrast Media Allergy Severe Anaphylaxis Verified 01/18/25 12:44 Review of Systems Status of ROS: Reports: 6 or more systems reviewed and unremarkable except as noted in History and below [facility] Medical History Ovarian cyst ?N83.209 - Unspecified ovarian cyst, unspecified side (ICD-10) Surgical History No significant past surgical history Social History Smoking Status: Never smoker Do you use any of these nicotine containing products: Vaping Products Second hand tobacco smoke exposure: No How often do you have a drink containing alcohol: never AUDIT-C Alcohol total score: 0 Non-prescribed substance use: marijuana (any form) service: No Exam Const: Vital Signs, click to edit/add: Vital Signs - 24 hr 01/18/25 12:44 01/18/25 13:26 01/18/25 13:38 Temperature 101.2 F H 101 F H Pulse Rate [Pulse Oximeter] 121 H Respiratory Rate 26 H Blood Pressure [Le ft Upper Arm] 121/75 Pulse Oximetry 98 96 Oxygen Delivery Me thod Room Air 01/18/25 14:02 01/18/25 14:45 01/18/25 15:25 Temperature 99.8 F H 98.8 F 98.9 F Pulse Rate [Pulse Oximeter] 98 100 98 Respiratory Rate 16 16 16 Blood Pressure [Le ft Upper Arm] 108/72 107/70 108/75 Pulse Oximetry 98 98 99 Oxygen Delivery Me thod Room Air Room Air Room Air This 19-year-old female is alert and interactive but certainly looks like she does not feel well. Her skin is warm without rash. Sclera clear, conjugate gaze. Oropharynx dry but no exudates or erythema. Neck is supple, no adenopathy. Her lungs actually are clear, do not hear any wheezing or crackles. No tachypnea, no accessory muscle use. CV fast but regular, no murmur noted, normal S1-S2. Abdomen is soft, nontender, nondistended, no organomegaly, no rebound or guarding. She certainly does not have any epigastric or upper abdominal tenderness on my examination at this time. Moving her arms and legs. When she does roll over, she is feeling discomfort in her back. Documenting provider has reviewed patient's vital signs: yes Course Course ED Course: Patient has a fever today. This most definitely is representing some sort of infectious etiology. Need to consider Pulmonary, possible cardiac, even musculoskeletal issues such as diskitis potentially given her severe back pain. Back pain could be from the fever and underlying illness with myalgias. Need to consider both viral as well as bacterial etiologies. Given the normal CT on the , doubt that this represents anything intra-abdominal but may need to reconsider that. Reevaluation(s) Time of Reevaluation #1: 14:15 Reevaluation #1: Patient is feeling a bit better with IV fluids and Toradol. She is still having some back pain, on palpation of her thoracic spine, has midline tenderness in the more mid thoracic spine. There is no overlying skin changes, no palpable defect of the area outside of the pain. Her labs are overall reassuring. Will proceed with chest CT and reconstitute her thoracic spine on CT. Patient does not do any IV drugs on questioning. She states she does no drug use at all outside of marijuana. She has never done any IV illicit substance use. Again she has had no travel. Will add on a mono spot as well. Time of Reevaluation #2: 15:06 Reevaluation #2: Updated patient on her CT finding of pneumonia. Provided her a copy of the report. Thankfully no evidence of any changes on the thoracic spine suggestive of any infection there and there is pneumonia on her CT imaging of her chest. Have initiated 2 g IV Rocephin, 500 mg oral azithromycin. She is getting a 2 L of IV fluids as labs do support some dehydration. Overall her vitals have improved, blood pressure is lower but she is feeling much better, much less pain and think the initial blood pressure could have had escalation from pain component. Vital Signs Vital signs: Initial Vital Signs Temperature 101.2 F H 01/18/25 12:44 Temperature Source Temporal Artery Scan 01/18/25 12:44 Pulse Rate 121 H 01/18/25 12:44 Respiratory Rate 26 H 01/18/25 12:44 Blood Pressure 121/75 01/18/25 12:44 Blood Pressure Mean 90 01/18/25 12:44 Blood Pressure Position Sitting 01/18/25 12:44 Pulse Oximetry 98 01/18/25 12:44 Oxygen Delivery Method Room Air 01/18/25 12:44 Vital Signs Temperature 101.2 F H 01/18/25 12:44 Pulse Rate 121 H 01/18/25 12:44 Respiratory Rate 26 H 01/18/25 12:44 Blood Pressure 121/75 01/18/25 12:44 Pulse Oximetry 98 01/18/25 12:44 Oxygen Delivery Method Room Air 01/18/25 12:44 Temperature 98.9 F 01/18/25 15:25 Pulse Rate 98 01/18/25 15:25 Respiratory Rate 16 01/18/25 15:25 Blood Pressure 108/75 01/18/25 15:25 Pulse Oximetry 99 01/18/25 15:25 Oxygen Delivery Method Room Air 01/18/25 15:25 Medications Administered Medications: Generic Name Dose Route Start Last Admin Trade Name Freq PRN Reason Stop Dose Admin Sodium Chloride 1,000 mls @ 500 mls/hr 01/18/25 14:22 01/18/25 14:23 0.9 % Sodium Chloride 1000 Ml IV 01/18/25 16:21 500 mls/hr .Q2H [place] Administration Discontinued Medications Generic Name Dose Route Start Last Admin Trade Name Freq PRN Reason Stop Dose Admin Azithromycin 500 mg 01/18/25 14:58 01/18/25 15:04 Azithromycin 250 Mg Tablet PO 01/18/25 14:59 500 mg ONCE ONE Administration Sodium Chloride 1,000 mls @ 1,000 mls/hr 01/18/25 13:11 01/18/25 14:29 0.9 % Sodium Chloride 1000 Ml IV 01/18/25 14:10 Infused .Q1H [place] Infusion Ceftriaxone Sodium 2 gm/ 100 mls @ 200 mls/hr 01/18/25 14:58 01/18/25 15:34 Sodium Chloride IVPB 01/18/25 14:59 Infused ONCE ONE Infusion Ketorolac Tromethamine 15 mg 01/18/25 13:10 01/18/25 13:38 Ketorolac 15 Mg/Ml Inj IVP 01/18/25 13:11 15 mg ONCE ONE Administration Ketorolac Tromethamine 15 mg 01/18/25 15:39 01/18/25 15:49 Ketorolac 15 Mg/Ml Inj IVP 01/18/25 15:40 15 mg ONCE ONE Administration Medical Decision Making Lab Data Lab results reviewed: Yes I reviewed the patient's lab results Labs: Lab Results 01/18/25 01/18/25 01/18/25 Range/Units 13:20 13:22 13:30 WBC 8.29 (4.50-11.00) K/uL RBC 5.08 (4.00-5.20) m/uL Hgb 14.5 (12.0-16.0) gm/dL Hct 41.8 (33.0-51.0) % MCV 82 (80-100) fL MCH 29 (26-34) pg MCHC 35 (32-36) gm/dL RDW Coeff of Nabila 11.4 L (11.5-15.5) % Plt Count 231 (140-440) K/uL Neut % (Auto) 84.5 H (42.0-72.0) % Lymph % (Auto) 8.1 L (20-44) % [place] % (Auto) 7.1 (0.0-11.0) % Eos % (Auto) 0.0 (0.0-7.0) % Baso % (Auto) 0.2 (0.0-3.0) % Neut # (Auto) 7.00 (1.7-7.0) K/uL Lymph # (Auto) 0.70 L (0.90-2.90) K/uL [place] # (Auto) 0.60 (0.00-0.90) K/UL Eos # (Auto) 0.00 (0.00-0.50) K/uL Baso # (Auto) 0.02 (0.00-0.30) K/uL Abs Immat Gran (auto) 0.01 (0.00-0.30) K/uL Imm/Tot Granulo (auto) 0.1 % Sodium 137 (135-149) mmol/L Potassium 3.7 (3.6-5.1) mmol/L Chloride 104 (96-114) mmol/L Carbon Dioxide 18 L (20-32) mmol/L Anion Gap 15 (7-15) mEq/L BUN 8 (5-24) mg/dL Creatinine 0.9 (0.5-1.5) mg/dL Estimated Creat Clear 78.86 Estimated GFR 94 ml/min Glucose 82 (60-115) mg/dL Lactate 1.4 (0.5-1.9) mmol/L Calcium 9.5 (8.4-10.6) mg/dL Total Bilirubin 0.7 (0.1-1.5) mg/dL AST 21 (12-35) U/L ALT 17 (4-35) U/L Alkaline Phosphatase 90 (40-150) U/L Troponin I < 0.01 (0.01-0.04) ng/mL C-Reactive Protein 1.1 H (0.5-1.0) mg/dL NT-Pro-B Natriuret Pep 20 pg/mL Total Protein 7.4 (6.0-8.3) g/dL Albumin 4.8 (3.3-5.0) g/dL Procalcitonin 0.06 (<0.50) ng/mL Urine Color Yellow (Yellow) Urine Appearance Clear (Clear) Urine pH 6.5 (5.0-8.5) Ur Specific [place] 1.025 (1.000-1.030) Urine Protein Negative (Negative) Urine Glucose (UA) Negative (Negative) Urine Ketones 3+ A (Negative) Urine Blood Trace-intact A (Negative) Urine Nitrite Negative (Negative) Urine Bilirubin Negative (Negative) Urine Urobilinogen 0.2 (0.2-1.0) Ur Leukocyte Esterase Negative (Negative) Urine RBC 2-5 A (0-2) Urine WBC 2-5 (0-5) Ur Squamous Epith Cells Few (None-Few) Urine Bacteria Few A (None) Urine Mucus Few A (None) Urine HCG, Qual Negative (Negative) SARS-CoV-2 (PCR) Negative SARS-CoV-2 (Negative) Monoscreen Negative (Negative) Influenza Type A (PCR) Negative PCR FLU A (Negative) Influenza Type B (PCR) Negative PCR FLU B (Negative) RSV (PCR) Negative PCR RSV (Negative) Lab Acknowledgement 01/18/25 Range/Units 14:17 WBC (4.50-11.00) K/uL RBC (4.00-5.20) m/uL Hgb (12.0-16.0) gm/dL Hct (33.0-51.0) % MCV (80-100) fL MCH (26-34) pg MCHC (32-36) gm/dL RDW Coeff of Nabila (11.5-15.5) % Plt Count (140-440) K/uL Neut % (Auto) (42.0-72.0) % Lymph % (Auto) (20-44) % [place] % (Auto) (0.0-11.0) % Eos % (Auto) (0.0-7.0) % Baso % (Auto) (0.0-3.0) % Neut # (Auto) (1.7-7.0) K/uL Lymph # (Auto) (0.90-2.90) K/uL [place] # (Auto) (0.00-0.90) K/UL Eos # (Auto) (0.00-0.50) K/uL Baso # (Auto) (0.00-0.30) K/uL Abs Immat Gran (auto) (0.00-0.30) K/uL Imm/Tot Granulo (auto) % Sodium (135-149) mmol/L Potassium (3.6-5.1) mmol/L Chloride (96-114) mmol/L Carbon Dioxide (20-32) mmol/L Anion Gap (7-15) mEq/L BUN (5-24) mg/dL Creatinine (0.5-1.5) mg/dL Estimated Creat Clear Estimated GFR ml/min Glucose (60-115) mg/dL Lactate (0.5-1.9) mmol/L Calcium (8.4-10.6) mg/dL Total Bilirubin (0.1-1.5) mg/dL AST (12-35) U/L ALT (4-35) U/L Alkaline Phosphatase (40-150) U/L Troponin I (0.01-0.04) ng/mL C-Reactive Protein (0.5-1.0) mg/dL NT-Pro-B Natriuret Pep pg/mL Total Protein (6.0-8.3) g/dL Albumin (3.3-5.0) g/dL Procalcitonin (<0.50) ng/mL Urine Color (Yellow) Urine Appearance (Clear) Urine pH (5.0-8.5) Ur Specific [place] (1.000-1.030) Urine Protein (Negative) Urine Glucose (UA) (Negative) Urine Ketones (Negative) Urine Blood (Negative) Urine Nitrite (Negative) Urine Bilirubin (Negative) Urine Urobilinogen (0.2-1.0) Ur Leukocyte Esterase (Negative) Urine RBC (0-2) Urine WBC (0-5) Ur Squamous Epith Cells (None-Few) Urine Bacteria (None) Urine Mucus (None) Urine HCG, Qual (Negative) SARS-CoV-2 (PCR) (Negative) Monoscreen (Negative) Influenza Type A (PCR) (Negative) Influenza Type B (PCR) (Negative) RSV (PCR) (Negative) Lab Acknowledgement Test Added Imaging Data Chest x-ray: Attestation: I have reviewed the pertinent imaging results. My impression: No infiltrate or reason for fever appreciated on my preliminary reading. Radiologist's impression: Patient: FELICIA ORTIZ Facility:?[facility] Patient ID:?[id number] Site Patient ID:?[id number]. Site :?2004 Study:?XRay-Chest 1 VIEW PORTABLE-01/18/2025 1:34:47 PM Ordering Physician:?Jason Wolff Final Report: Indication: Fever, chest and back pain Technique: Chest 1 view Comparison: None Findings/Impression: Cardiovascular and mediastinum: Heart size and vasculature are normal in caliber and appearance. Lungs and pleural space: Lungs are clear. No sign of infiltrate or mass. No sign of pleural effusion. No pneumothorax. Bones and soft tissues: No acute findings. Dictated by Pedro Eagle MD @ 01/18/2025 1:46:39 PM (Electronic Signature) CT thoracic spine: Attestation: I have reviewed the pertinent imaging results. Radiologist's impression: Patient: [facility] Facility:?[facility] Patient ID:?[id number] Site Patient ID:?[id number]. Site :?2004 Study:?CT-Spine Thoracic WITHOUT-01/18/2025 2:41:06 PM Ordering Physician:?Jason Wolff Final Report: INDICATION: Fever. Back pain. COMPARISON: None. TECHNIQUE: Noncontrast CT thoracic spine. FINDINGS: Normal vertebral body and facet alignment. No fractures. No vertebral body loss of height. No spondylolisthesis. No fractures of the posterior ribs. No significant spondylotic changes. No prominent disc protrusions or herniations. No severe spinal canal or neural foraminal narrowing at all levels. Patchy infiltrates within the medial right lower lobe consistent with pneumonitis. IMPRESSION: 1. Normal alignment. No fractures 2. No significant spondylotic changes. 3. No severe spinal canal or neural foraminal narrowing at all levels 4. Patchy infiltrates within the medial right lower lobe consistent with pneumonitis Please note that all CT scans at this facility use dose modulation, iterative reconstruction, and/or weight-based dosing when appropriate to reduce radiation dose to as low as reasonably achievable. Dictated by Dileep Banuelos MD @ 01/18/2025 2:52:18 PM (Electronic Signature) CT scan - chest: Attestation: I have reviewed the pertinent imaging results. My impression: CT reviewed and appreciate lower right lung infiltrates. Await radiology reading. Radiologist's impression: Patient: FELICIA ORTIZ Facility:?[facility] Patient ID:?[id number] Site Patient ID:?[id number]. Site :?2004 Study:?CT-Chest WITHOUT-01/18/2025 2:42:29 PM Ordering Physician:Jennifer Wolff Final Report: Indication: Fever, cough Technique: Volumetric multidetector CT images of the chest were obtained without the administration of IV contrast. Comparison: None available. Findings: The thoracic inlet and thyroid gland are unremarkable. The thoracic aorta is nonaneurysmal. There is no mediastinal, hilar or axillary adenopathy. There is mild central bronchial thickening. There is developing airspace opacity within the medial superior right lower lobe. No other dense consolidation, effusion or pneumothorax is appreciated. There is no evidence of pulmonary mass or suspicious pulmonary nodule. The partially visualized upper abdomen demonstrates mild hepatomegaly and hepatic steatosis. Moderate stool seen throughout the colon. The thoracic vertebral body heights remain intact alignment without significant degenerative change or acute osseous abnormality. Impression: Dense airspace opacification of the medial superior aspect of the right lower lobe consistent with developing pneumonia. No other acute cardiopulmonary abnormalities are appreciated. Please note that all CT scans at this facility use dose modulation, iterative reconstruction, and/or weight-based dosing when appropriate to reduce radiation dose to as low as reasonably achievable. Dictated by Marc Mcelroy MD @ 01/18/2025 2:56:54 PM (Electronic Signature) ECG Data Attestation: I personally reviewed and interpreted this ECG as follows: (Normal sinus rhythm, 80 beats per minute. No evidence for ischemia, pericarditis.) Prior ECG tracings: not available for review Discharge Plan Discharge Clinical Impression: Community acquired pneumonia, Acute dehydration Patient Disposition: Home, Self-Care Condition: Stable Instructions: Dehydration (ED), Pneumonia (ED) Additional Instructions: Continue with oral antibiotics, next dose due tomorrow morning. Have sent in prescription strength ibuprofen to take to help with the body aches and pains. As your pneumonia is treated, do expect the back pain, fever to improve. Also recommend taking Tylenol 1000 mg 3 times a day baseline right now until you are feeling better. It is important that she try to drink more fluids, small frequent sips of fluids will help you stay hydrated. Your appetite will improve as your pneumonia is getting better. Have sent some Zofran to help with any ongoing nausea. Recheck in clinic next week with your primary care provider. Return to the ER if you feel you are worsening, are unable to take her oral antibiotics or have further concerns. Activity Level: Activity as Tolerated Prescriptions: New cefdinir 300 mg capsule 300 mg PO BID Qty: 14 0RF azithromycin 250 mg tablet 250 mg PO DAILY 6 Days Qty: 4 0RF Rx Instructions: start on day 2 of therapy ondansetron 4 mg tablet,disintegrating 4 mg PO Q6H PRN (Reason: nausea and vomiting) Qty: 10 0RF ibuprofen 600 mg tablet 600 mg PO Q6H PRNQty: 30 0RF No Action buspirone 5 mg tablet 5 mg PO BID hydroxyzine HCl 25 mg tablet PO ondansetron 4 mg tablet,disintegrating 4 mg PO Q8H PRN (Reason: nausea and vomiting) Qty: 10 0RF pantoprazole [Protonix] 20 mg tablet,delayed release (DR/EC) 20 mg PO DAILY Qty: 30 2RF Nexplanon 68 mg implant subdermal Follow Up/Referrals: Provider,Not a Local [Primary Care Provider] - Stand Alone Forms: [employer] Info Instructions
--- NOTE | 2025-01-18 13:11 | CRLHL7_ITS ---
For Patients: As a result of the Century Cures Act, medical imaging exams and procedure reports are released immediately into your electronic medical record. You may view this report before your referring provider. If you have questions, please contact your health care provider. Indication: Fever, chest and back pain Technique: Chest 1 view Comparison: None Findings/Impression: Cardiovascular and mediastinum: Heart size and vasculature are normal in caliber and appearance. Lungs and pleural space: Lungs are clear. No sign of infiltrate or mass. No sign of pleural effusion. No pneumothorax. Bones and soft tissues: No acute findings. Dictated by Pedro Eagle MD @ 01/18/2025 1:46:39 PM (Electronically Signed)
[2025-01-18 13:26] VITALS: O2SAT 96
[2025-01-18 13:28] LABS: Lactate* 1.4 mmol/L (0.5-1.9)
[2025-01-18 13:30] LABS: Basophils Absolute Auto 0.02 K/uL (0.00-0.30); Basophils Percent Auto 0.2 % (0.0-3.0); Hematocrit 41.8 % (33.0-51.0); Hemoglobin* 14.5 gm/dL (12.0-16.0); Immature Granulocytes Abs Auto 0.01 K/uL (0.00-0.30); Immature Granulocytes Pct Auto 0.1 %; Lymphocytes Percent Auto 8.1 % (20-44); Mean Corpuscular HGB Conc 35 gm/dL (32-36); Mean Corpuscular Hemoglobin 29 pg (26-34); Mean Corpuscular Volume 82 fL (80-100); Monocytes Percent Auto 7.1 % (0.0-11.0); Neutrophils Percent Auto 84.5 % (42.0-72.0); Platelet Count* 231 K/uL (140-440); RDW Coefficient of Variation % 11.4 % (11.5-15.5); Red Blood Count 5.08 m/uL (4.00-5.20); White Blood Count* 8.29 K/uL (4.50-11.00)
[2025-01-18 13:32] LABS: Slide Review Reflex No
--- OUTSIDE RECORDS SUMMARY | 2025-01-18 13:34 | XMS_ITS | Clinical Summary ---
Author Organization [facility] Address [address] [address] Phone Care Team Providers Care Msw Name Role Phone Narayan Lee MD Primary Care Provider [phone] Allergies Active Allergy Reactions Criticality Noted Date [...] hamstring allograft; Surgeon: Jaime Delarosa MD; Location: [facility] Medical devices from this [...] Sex Assigned at Female 09/14/2018 7:47 AM FIELD RADIO OPERATOR Legal Sex Female 2:55 PM FIELD RADIO OPERATOR Gender Identity Female 09/14/2018 7:47 AM FIELD RADIO OPERATOR Sexual Orientation Not on file Obstetrics History Last Filed Vital Signs Vital Sign Reading Time Taken Comments Blood Pressure 97/39 09/14/2018 5:00 PM FIELD RADIO OPERATOR asl eep Pulse 90 09/14/2018 5:00 PM FIELD RADIO OPERATOR Temperature 37.2 C (98.9 F) 09/14/2018 5:00 PM FIELD RADIO OPERATOR Respiratory Rate 14 09/14/2018 5:46 PM FIELD RADIO OPERATOR Oxygen Saturation 97% 09/14/2018 3:00 PM FIELD RADIO OPERATOR Inhaled Oxygen Concentration - - Weight 64.7 kg (142 lb 10.2 oz) 09/14/2018 7:28 AM FIELD RADIO OPERATOR Height 155.5 cm (5' 1.22) 09/14/2018 7:28 AM CS T Body Mass Index 26.76 09/14/2018 7:28 AM FIELD RADIO OPERATOR Plan of Treatment Health Maintenance Due [...] history exists Medical Devices Implanted Type Area Mattress Filler Device Identifier Shelf Expiration Date Model / Serial / Lot System Implant Mpfl Bio Composite [id number]-[id number]-[id number] - [id number] Implanted:Qty: 1 on 09/14/2018 by Jaime Delarosa MD at [facility] Right: Knee ARTHREX 01/08/2020 AR-1360C-C P / NO / [id number] Graft Allograft Tendon Gracillis 27.2cm X 4.0mm [id number] - [id number] Implanted:Qty: 1 on 09/14/2018 by Jaime Delarosa MD at [facility] Right: Knee MUSCULOSKELETAL TRANSPLANT FOU 03/08/2023 [id number] / [id number] / NO Insurance [place] [address] [facility] [address] [place] [address] [place] [address] [place] [address] Advance Directives For more information, please contact: [phone] * Full Code (Latest Code Status on File) Date Activated Date Inactivated Comments 09/14/2018 1:55 PM 09/14/2018 10:36 PM Care Teams Msw Relationship Specialty Start Date End Date Narayan Lee MD [address] [place] [address] PCP - General Family Medicine 09/28/10
[2025-01-18 13:38] VITALS: TEMP 38.3
[2025-01-18] MEDS: KETOROLAC 15 MG/ML inj IVP ×2 (13:38→15:49)
[2025-01-18] MEDS: 0.9 % SODIUM CHLORIDE 1000 ml 1,000 ML IV (13:38)
[2025-01-18 13:43] LABS: Albumin* 4.8 g/dL (3.3-5.0); Chloride* 104 mmol/L (96-114); Potassium* 3.7 mmol/L (3.6-5.1); Sodium* 137 mmol/L (135-149)
[2025-01-18 13:46] LABS: Alanine Aminotransferase* 17 U/L (4-35); Alkaline Phosphatase* 90 U/L (40-150); Anion Gap 15 mEq/L (7-15); Aspartate Amino Transferase* 21 U/L (12-35); Bilirubin Total* 0.7 mg/dL (0.1-1.5); Blood Urea Nitrogen* 8 mg/dL (5-24); Carbon Dioxide* 18 mmol/L (20-32); Creatinine* 0.9 mg/dL (0.5-1.5); Est. Creatinine Clearance* 78.86; Estimated Glomerular Filt Rate 94 ml/min; Total Protein* 7.4 g/dL (6.0-8.3)
[2025-01-18 13:47] LABS: Calcium* 9.5 mg/dL (8.4-10.6); Glucose* 82 mg/dL (60-115)
[2025-01-18 13:49] LABS: C Reactive Protein* 1.1 mg/dL (0.5-1.0)
[2025-01-18 13:52] LABS: Appearance Urine Clear (Clear); Bilirubin Urine Negative (Negative); Blood Urine Trace-intact (Negative); Color Urine Yellow (Yellow); Glucose Urine Negative (Negative); Ketones Urine 3+ (Negative); Leukocyte Esterase Urine Negative (Negative); Nitrite Urine Negative (Negative); Protein Urine Negative (Negative); Specific Gravity Urine 1.025 (1.000-1.030); Urobilinogen Urine 0.2 (0.2-1.0); pH Urine 6.5 (5.0-8.5)
[2025-01-18 13:54] LABS: Ur HCG Qualitative* Negative (Negative)
[2025-01-18 14:02] VITALS: BP 108/72; PULSE 98; RESP 16; TEMP 37.7; O2SAT 98
[2025-01-18 14:03] LABS: NT Pro B Type NatriureticPept* 20 pg/mL; Procalcitonin* 0.06 ng/mL (<0.50); Troponin I* < 0.01 ng/mL (0.01-0.04)
[2025-01-18 14:05] LABS: PCR FLU A Negative PCR FLU A (Negative); PCR FLU B Negative PCR FLU B (Negative); PCR RSV Negative PCR RSV (Negative); SARS PCR* Negative SARS-CoV-2 (Negative)
[2025-01-18 14:10] LABS: Bacteria Urine Few; Mucus Urine Few; Squamous Epithelial Cell Urine Few (None-Few)
--- NOTE | 2025-01-18 14:17 | CRLHL7_ITS ---
For Patients: As a result of the Cures Act, medical imaging exams and procedure reports are released immediately into your electronic medical record. You may view this report before your referring provider. If you have questions, please contact your health care provider. INDICATION: Fever. Back pain. COMPARISON: None. TECHNIQUE: Noncontrast CT thoracic spine. FINDINGS: Normal vertebral body and facet alignment. No fractures. No vertebral body loss of height. No spondylolisthesis. No fractures of the posterior ribs. No significant spondylotic changes. No prominent disc protrusions or herniations. No severe spinal canal or neural foraminal narrowing at all levels. Patchy infiltrates within the medial right lower lobe consistent with pneumonitis. IMPRESSION: 1. Normal alignment. No fractures 2. No significant spondylotic changes. 3. No severe spinal canal or neural foraminal narrowing at all levels 4. Patchy infiltrates within the medial right lower lobe consistent with pneumonitis Please note that all CT scans at this facility use dose modulation, iterative reconstruction, and/or weight-based dosing when appropriate to reduce radiation dose to as low as reasonably achievable. Dictated by Dileep Banuelos MD @ 01/18/2025 2:52:18 PM (Electronically Signed)
--- NOTE | 2025-01-18 14:17 | CRLHL7_ITS ---
For Patients: As a result of the Century Cures Act, medical imaging exams and procedure reports are released immediately into your electronic medical record. You may view this report before your referring provider. If you have questions, please contact your health care provider. Indication: Fever, cough Technique: Volumetric multidetector CT images of the chest were obtained without the administration of IV contrast. Comparison: None available. Findings: The thoracic inlet and thyroid gland are unremarkable. The thoracic aorta is nonaneurysmal. There is no mediastinal, hilar or axillary adenopathy. There is mild central bronchial thickening. There is developing airspace opacity within the medial superior right lower lobe. No other dense consolidation, effusion or pneumothorax is appreciated. There is no evidence of pulmonary mass or suspicious pulmonary nodule. The partially visualized upper abdomen demonstrates mild hepatomegaly and hepatic steatosis. Moderate stool seen throughout the colon. The thoracic vertebral body heights remain intact alignment without significant degenerative change or acute osseous abnormality. Impression: Dense airspace opacification of the medial superior aspect of the right lower lobe consistent with developing pneumonia. No other acute cardiopulmonary abnormalities are appreciated. Please note that all CT scans at this facility use dose modulation, iterative reconstruction, and/or weight-based dosing when appropriate to reduce radiation dose to as low as reasonably achievable. Dictated by Marc Mcelroy MD @ 01/18/2025 2:56:54 PM (Electronically Signed)
[2025-01-18] MEDS: 0.9 % SODIUM CHLORIDE 1000 ml 1,000 ML 500 ML IV (14:23)
[2025-01-18 14:34] LABS: Mono Screen* Negative (Negative)
[2025-01-18 14:45] VITALS: BP 107/70; PULSE 100; RESP 16; TEMP 37.1; O2SAT 98
[2025-01-18] MEDS: AZITHROMYCIN 250 MG TABLET 500 MG PO (15:04)
[2025-01-18] MEDS: cefTRIAXone 2 GM in 0.9 % SODIUM CHLORIDE Mini-bag 100 ML IVPB (15:04)
[2025-01-18 15:25] VITALS: BP 108/75; PULSE 98; RESP 16; TEMP 37.2; O2SAT 99
== END 2025-01-18 16:10 | disposition home or self-care (01) ==
PROVIDERS: Emergency Provider Family Medicine
DX: J18.9 Pneumonia, unspecified organism (principal); E86.0 Dehydration; R05.8 Other specified cough
CPT/HCPCS: 36415; 71045; 71250; 72128; 80053; 81001; 81025; 83605; 83880; 84145; 84484; 85025; 86140; 86308; 87040; 87086; 87631; 93005; 94761; 96365; 96375; 99284; 99285; A9270; J0696; J1885; J7030

== ENCOUNTER 2025-04-06 19:27 | Emergency (ER) | payer BC, SELFPAY ==
--- OUTSIDE RECORDS SUMMARY | 2025-04-06 19:28 | XMS_ITS | Clinical Summary ---
Author Organization [facility] Address [address] [address] Phone Care Team Providers Care Program Support Clerk Name Role Phone Narayan Lee MD Primary Care Provider [phone] Allergies Active Allergy Reactions Criticality Noted Date [...] 04/28/2018 Myopia with astigmatism, bilateral 07/01/2015 Immunizations Immunization Administration Dates Next Due DTaP <7 years [...] hamstring allograft; Surgeon: Jaime Delarosa MD; Location: [facility] Medical devices from this [...] Sex Assigned at Female 09/14/2018 7:47 AM SAND SYSTEM OPERATOR Legal Sex Female 2:55 PM SAND SYSTEM OPERATOR Gender Identity Female 09/14/2018 7:47 AM SAND SYSTEM OPERATOR Sexual Orientation Not on file Obstetrics History Last Filed Vital Signs Vital Sign Reading Time Taken Comments Blood Pressure 97/39 09/14/2018 5:00 PM SAND SYSTEM OPERATOR asl eep Pulse 90 09/14/2018 5:00 PM SAND SYSTEM OPERATOR Temperature 37.2 C (98.9 F) 09/14/2018 5:00 PM SAND SYSTEM OPERATOR Respiratory Rate 14 09/14/2018 5:46 PM SAND SYSTEM OPERATOR Oxygen Saturation 97% 09/14/2018 3:00 PM SAND SYSTEM OPERATOR Inhaled Oxygen Concentration - - Weight 64.7 kg (142 lb 10.2 oz) 09/14/2018 7:28 AM SAND SYSTEM OPERATOR Height 155.5 cm (5' 1.22) 09/14/2018 7:28 AM CS T Body Mass Index 26.76 09/14/2018 7:28 AM SAND SYSTEM OPERATOR Plan of Treatment Health Maintenance Due Date Last Done Comments HPV Vaccine (Standing Order) (1 - 3-dose series) 2019 Chlamydia Screening 2020 Meningococcal B Vaccine (Sta nding Order) (1 of 2 - Standard) 2020 ADULT COMPLETE PHYSICAL AGE 19-21 YRS 2023 Pneumococcal/PCV20 Vaccine: Pediatrics (2-5 yrs) and At-Risk Patients (6-49 yrs) (Standing Order) (1 of 2 - PCV) 2023 04/28/2006, 05/06/2005 TETANUS (Standing Order) 03/09/2027 017, 02/09/2010, 01/20/2009, Additional history exists Hepatitis B Vaccine (Standin g Order) Completed 01/20/2009, 04/28/2006, 05/06/2005 PERTUSSIS (Standing Order) Completed 03/09, 02/09/2010, 01/20/2009, Additional history exists Medical Devices Implanted Type Area Timber Watchman Device Identifier Shelf Expiration Date Model / Serial / Lot System Implant Mpfl Bio Composite Ar-[id number] - [id number] Implanted:Qty: 1 on 09/14/2018 by Jaime Delarosa MD at [facility] Right: Knee ARTHREX 01/08/2020 AR-1360C-C P / NO / [id number] Graft Allograft Tendon Gracillis 27.2cm X 4.0mm [id number] - [id number] Implanted:Qty: 1 on 09/14/2018 by Jaime Delarosa MD at [facility] Right: Knee [employer]CULOSKELETAL TRANSPLANT FOU 03/08/2023 [id number] / [id number] / NO Insurance [place] [address] PHARMACY [facility] Advance Directives For more information, please contact: [phone] * Full Code (Latest Code Status on File) Date Activated Date Inactivated Comments 09/14/2018 1:55 PM 09/14/2018 10:36 PM Care Teams Program Support Clerk Relationship Specialty Start Date End Date Narayan Lee MD [address] [address] PCP - General Family Medicine 09/28/10
[2025-04-06 19:34] VITALS: BP 131/73; PULSE 86; RESP 20; TEMP 36.7; O2SAT 98; BMI 20.5
--- NOTE | 2025-04-06 19:54 | ED.GENADULT ---
HPI - General Adult General Chief complaint: Back Injury/Pain Stated complaint: Chest and back pain Time Seen by Provider: 04/06/25 19:34 History of Present Illness HPI narrative: This 19-year-old female comes in reporting chest discomfort and back discomfort that started about a week ago. She has had back pain in the past but it seems to be more in her mid back over the past week. She does not report any injury event or strenuous activity recently. She also has some chest discomfort along the sternal border bilaterally. This is somewhat reproducible when taking a deep breath. She does state that she has some anxiety related to all this. She does not report any nausea, vomiting, diaphoresis, or exercise intolerance. She states that she does smoke and she also vapes. Related Data Home Medications ?Medication ?Instructions ?Recorded ?Confirmed buspirone 5 mg tablet 5 mg PO BID 01/14/25 04/06/25 hydroxyzine HCl 25 mg tablet 25 mg PO 01/14/25 01/30/25 etonogestrel 68 mg subdermal 1 implant subdermal 01/18/25 01/30/25 implant (Nexplanon) Previous Rx's ?Medication ?Instructions ?Recorded ondansetron 4 mg disintegrating 4 mg PO Q8H PRN nausea and 01/14/25 tablet vomiting #10 tabs pantoprazole 20 mg tablet,delayed 20 mg PO DAILY #30 tabs 01/15/25 release (Protonix) Held on 01/30/25. Instructions: Home Medication placed on hold at Doctor's office ibuprofen 600 mg tablet 600 mg PO Q6H PRN #30 tabs 01/18/25 ondansetron 4 mg disintegrating 4 mg PO Q6H PRN nausea and 01/18/25 tablet vomiting #10 tabs ketorolac 10 mg tablet 10 mg PO TID 5 days #15 tabs 04/06/25 Allergies Allergy/AdvReac Type Severity Reaction Status Date / Time Iodinated Contrast Media Allergy Severe Anaphylaxis Verified 04/06/25 19:32 Review of Systems Status of ROS: Reports: 10 or more systems reviewed and unremarkable except as noted in History and below Narrative: Constitutional: No fevers, no weight gain or loss. Eyes: No discharge. No vision changes. HENT: No congestion, no sore throat, no ear pain. Cardiovascular: No palpitations. Respiratory: No shortness of breath, no wheezes, no cough. Gastrointestinal: No abdominal pain, no vomiting, no diarrhea. Genitourinary: No dysuria, no hematuria. Musculoskeletal: Normal range of motion. Skin: No rashes, no pruritis. Neurological: No dizziness, weakness, sensory change, speech change. Endo/Heme/Allergies: No bruising or bleeding. No polydipsia. Pysch: no suicidality, no insomnia. All other systems reviewed and are negative. [facility] Medical History Ovarian cyst ?N83.209 - Unspecified ovarian cyst, unspecified side (ICD-10) Surgical History No significant past surgical history Social History Smoking Status: Never smoker Do you use any of these nicotine containing products: Vaping Products Second hand tobacco smoke exposure: No How often do you have a drink containing alcohol: never AUDIT-C Alcohol total score: 0 Non-prescribed substance use: marijuana (any form) service: No Exam Narrative: Exam Narrative: Constitutional: Well-developed, well-nourished, no acute distress. HEENT: Normocephalic, atraumatic. Neck: Normal range of motion. Nontender. Supple. Heart: Regular. No murmurs. Normal rate. Intact distal pulses. Lungs: Clear to auscultation. No wheezes, rhonchi, or rales. Abdomen: Normal bowel sounds. Nontender. No rebound tenderness. Genitalia: Deferred. Back: No midline tenderness. Normal range of motion. Extremities: Normal range of motion. No injury. Skin: Intact. No rash. Warm. No erythema or pallor. Neurologic: No altered sensation. No weakness. Alert and oriented. Psychiatric: No suicidality. Nursing notes and vitals signs are reviewed. Const: Vital Signs, click to edit/add: Vital Signs - 24 hr 04/06/25 19:34 Temperature 98.0 F Pulse Rate [Pulse Oximeter] 86 Respiratory Rate 20 Blood Pressure [Ri ght Upper Arm] 131/73 Pulse Oximetry 98 Oxygen Delivery Me thod Room Air Course Vital Signs Vital signs: Initial Vital Signs Temperature 98.0 F 04/06/25 19:34 Temperature Source Temporal Artery Scan 04/06/25 19:34 Pulse Rate 86 04/06/25 19:34 Respiratory Rate 20 04/06/25 19:34 Blood Pressure 131/73 04/06/25 19:34 Blood Pressure Mean 92 04/06/25 19:34 Pulse Oximetry 98 04/06/25 19:34 Oxygen Delivery Method Room Air 04/06/25 19:34 Vital Signs Temperature 98.0 F 04/06/25 19:34 Pulse Rate 86 04/06/25 19:34 Respiratory Rate 20 04/06/25 19:34 Blood Pressure 131/73 04/06/25 19:34 Pulse Oximetry 98 04/06/25 19:34 Oxygen Delivery Method Room Air 04/06/25 19:34 Temperature 98.0 F 04/06/25 19:34 Pulse Rate 86 04/06/25 19:34 Respiratory Rate 20 04/06/25 19:34 Blood Pressure 131/73 04/06/25 19:34 Pulse Oximetry 98 04/06/25 19:34 Oxygen Delivery Method Room Air 04/06/25 19:34 Medical Decision Making MDM Narrative Medical decision making narrative: This patient comes in reporting mid to upper back pain and also some chest discomfort is described above. She admits that this is likely related to anxiety. She can reproduce her symptoms a bit with the deep breath. I did discuss lab and imaging options. An EKG was obtained and returns with normal findings. Additionally I did use bedside ultrasound to see normal anatomy of heart and lungs and ribs. She is reassured with these results and feels okay to return home I did provide a prescription for Toradol. ECG Data Attestation: I personally reviewed and interpreted this ECG as follows: Interpretation: Normal sinus rhythm. Rate is 76 beats per minute. There are no ST or T-wave abnormalities. Discharge Plan Discharge Clinical Impression: Chest wall pain, Anxiety Patient Disposition: Home, Self-Care Condition: Stable Additional Instructions: Take medication as needed and indicated. Okay to also use Tylenol as directed. Activity as tolerated. Follow up with MD return if worsening. Prescriptions: New ketorolac 10 mg tablet 10 mg PO TID 5 Days Qty: 15 0RF No Action buspirone 5 mg tablet 5 mg PO BID hydroxyzine HCl 25 mg tablet 25 mg PO ondansetron 4 mg tablet,disintegrating 4 mg PO Q8H PRN (Reason: nausea and vomiting) Qty: 10 0RF pantoprazole [Protonix] 20 mg tablet,delayed release (DR/EC) 20 mg PO DAILY Qty: 30 2RF Nexplanon 68 mg implant 1 implant subdermal ondansetron 4 mg tablet,disintegrating 4 mg PO Q6H PRN (Reason: nausea and vomiting) Qty: 10 0RF ibuprofen 600 mg tablet 600 mg PO Q6H PRNQty: 30 0RF Follow Up/Referrals: Steph Lopez, ASSISTANT MEDIA BUYER [Primary Care Provider, Family Practice] Stand Alone Forms: MyHealth Info Instructions Procedures Ultrasound Cardiac exam #1: Anatomical areas examined: parasternal long and parasternal short Indications: chest pain Exam type: limited transthoracic echocardiogram Impression: negative exam
== END 2025-04-06 20:49 | disposition home or self-care (01) ==
PROVIDERS: Emergency Provider Emergency Medicine Emergency Medical Services; PCP Registered Nurse
DX: R07.89 Other chest pain (principal); M54.89 Other dorsalgia; F12.90 Cannabis use, unspecified, uncomplicated; F17.290 Nicotine dependence, other tobacco product, uncomplicated
CPT/HCPCS: 76604; 76705; 93005; 93308; 99284; 99285